=== PATIENT | female | born 1960 | race Caucasian/White ===

== ENCOUNTER 2020-05-30 20:25 | Emergency (ER) | payer OTHER, MEDICARE, MEDICAID ==
[~2020-05-30] VITALS: Ht 170.2 cm; Wt 147.0 kg
[2020-05-30 23:21] VITALS: BP 163/83
== END 2020-05-30 23:23 | disposition home or self-care (01) ==
LOC: ER 20:26
DX: S16.1XXA Strain of muscle, fascia and tendon at neck level, initial encounter (principal); S09.8XXA Other specified injuries of head, initial encounter; M54.2 Cervicalgia; M54.5 Low back pain; R51 Headache; V87.7XXA Person injured in collision between other specified motor vehicles (traffic), initial encounter; Y93.89 Activity, other specified; Y92.89 Other specified places as the place of occurrence of the external cause; Y99.8 Other external cause status
CPT/HCPCS: 70450; 72125; 99285